=== PATIENT | female | born 1990 | race Caucasian/White ===

== ENCOUNTER 2016-09-27 19:13 | Emergency (ER) | payer SELFPAY ==
[~2016-09-27] VITALS: Ht 160 cm; Wt 51.0 kg
[2016-09-27 19:28] VITALS: BP 129/92; PULSE 114; RESP 18; TEMP 98.3; O2SAT 96
== END 2016-09-27 20:28 | disposition left against medical advice (07) ==
LOC: PHED 19:13
DX: R68.89 Other general symptoms and signs (principal)
CPT/HCPCS: 99281

== ENCOUNTER 2016-09-29 10:35 | Emergency (ER) | payer SELFPAY ==
[~2016-09-29] VITALS: Ht 160 cm; Wt 55.0 kg
[2016-09-29 10:37] VITALS: BP 105/72; PULSE 76; RESP 17; TEMP 98.2; O2SAT 99
[2016-09-29 10:46] VITALS: BP 112/71; PULSE 63; RESP 18; TEMP 98.7; O2SAT 97
[2016-09-29] MEDS ORDERED: SODIUM CHLORIDE 0.9% FLUSH 10 ML FLUSH IV FLUSH PRN (11:00)
[2016-09-29 11:01] VITALS: O2SAT 96
[2016-09-29 11:28] LABS: AUTOMATED NEUTROPHIL # 6.7 TH/MM3 (1.8-7.7); BASOPHIL % 0.3 % (0.0-2.0); EOSINOPHIL # 0.4 TH/MM3 (0-0.4); EOSINOPHIL % 3.4 % (0.0-4.0); HEMATOCRIT 46.1 % (35.0-46.0); HEMO FLAGS DIFF FINAL; LYMPH % 31.3 % (9.0-44.0); LYMPHOCYTE # 3.5 TH/MM3 (1.0-4.8); MEAN CELL VOLUME 82.6 FL (80.0-100.0); MEAN CORPUSCULAR HEMOGLOBIN 27.5 PG (27.0-34.0); MEAN CORPUSCULAR HGB CONC 33.3 % (32.0-36.0); MONO % 5.3 % (0.0-8.0); NEUT % 59.7 % (16.0-70.0); PLATELET COUNT 291 TH/MM3 (150-450); RED BLOOD COUNT 5.58 MIL/MM3 (4.00-5.30); WHITE BLOOD COUNT 11.2 TH/MM3 (4.0-11.0)
[2016-09-29 11:55] LABS: ALT (GPT) 43 U/L (10-53); ANION GAP 9 MEQ/L (5-15); AST (GOT) 17 U/L (15-37); BICARBONATE 25.7 MEQ/L (21.0-32.0); BLOOD UREA NITROGEN 12 MG/DL (7-18); CHLORIDE 103 MEQ/L (98-107); GLOMERULAR FILTRATION RATE 91 ML/MIN (>89); POTASSIUM 4.5 MEQ/L (3.5-5.1); SODIUM (NA) 138 MEQ/L (136-145)
[2016-09-29 11:57] LABS: ALKALINE PHOSPHATASE 57 U/L (45-117); TOTAL BILIRUBIN ADULT 0.3 MG/DL (0.2-1.0)
--- NOTE | 2016-09-29 12:00 | PD ---
HPI Chief Complaint: General Weakness Time Seen by Provider: 10:55 Travel History International Travel<30 days: No Contact w/Intl Traveler<30days: No Traveled to known affect area: No History of Present Illness HPI Patient is a 26-year-old female with history of IVDU who presents emergency department with complaint of generalized weakness, nausea vomiting diarrhea. Patient has a history of heroin abuse. States she last used approximately 9 days ago. She's been feeling poorly in the interim with withdrawal symptoms of nausea vomiting and diarrhea. Patient states that this is typical for her withdrawal but it seems to be lasting longer. She typically only withdraws for 3-5 days historically. She has not had any fevers, chills. She does feel generally weak and is concerned she may have an infection somewhere because of her history of IV drug abuse. She most recently injected in the hands and has not had any associated erythema or swelling. PFSH Past Medical History Asthma: Yes Anxiety: Yes Depression: Yes Heart Rhythm Problems: Yes (arrythmia ) Cardiovascular Problems: No (irregular rhythm) Insomnia: Yes Respiratory: Yes (asthma) Influenza Vaccination: No ?: Not LMP: last period in 2014 Past Surgical History Surgical History: No Previous Surgery Social History Alcohol Use: Yes (occassionally ) Tobacco Use: Yes (couple cigarettes a day) Substance Use: Yes (herroine, last time 09/21/2016) Allergies-Medications (Allergen,Severity, Reaction): Coded Allergies: Amoxicillin (Verified Allergy, Severe, throat closes, 09/29/16) Penicillin (Verified Allergy, Severe, 09/27/16) Reported Meds & Prescriptions Reported Meds & Active Scripts Active No Active Prescriptions or Reported Medications Review of Systems Except as stated in HPI: all other systems reviewed are Neg Physical Exam Narrative GENERAL: Well-appearing female in no acute distress SKIN: Focused skin assessment warm/dry. Tract minor in the bilateral arms without any erythema HEAD: Normocephalic. EYES: No scleral icterus. No injection or drainage. ENT: Mucous membranes pink and moist. NECK: Supple CARDIOVASCULAR: Regular rate and rhythm. No murmur appreciated. RESPIRATORY: No accessory muscle use. Clear to auscultation. Breath sounds equal bilaterally. GASTROINTESTINAL: Abdomen soft, non-tender, nondistended. MUSCULOSKELETAL: No obvious deformities. No edema. NEUROLOGICAL: Awake and alert. Motor grossly within normal limits. Normal speech. PSYCHIATRIC: Appropriate mood and affect; insight and judgment normal. Data Data Last Documented VS Vital Signs Date Time Temp Pulse Resp B/P Pulse Ox O2 Delivery O2 Flow Rate FiO2 09/29/16 11:01 96 Room Air 09/29/16 10:46 98.7 63 18 Orders Complete Blood Count With Diff (09/29/16 10:58) Comprehensive Metabolic Panel (09/29/16 10:58) Lipase (09/29/16 10:58) Iv Access Insert/Monitor (09/29/16 10:58) Oximetry (09/29/16 10:58) Sodium Chloride 0.9% Flush (Ns Flush) (09/29/16 11:00) Blood Culture (09/29/16 10:58) Labs Laboratory Tests Test 09/29/16 09/29/16 11:08 11:10 Sodium Level 138 MEQ/L Potassium Level 4.5 MEQ/L Chloride Level 103 MEQ/L Carbon Dioxide Level 25.7 MEQ/L Anion Gap 9 MEQ/L Blood Urea Nitrogen 12 MG/DL Creatinine 0.76 MG/DL Estimat Glomerular Filtration 91 ML/MIN Rate Random Glucose 105 MG/DL Calcium Level 9.1 MG/DL Total Bilirubin 0.3 MG/DL Aspartate Amino Transf 17 U/L (AST/SGOT) Alanine Aminotransferase 43 U/L (ALT/SGPT) Alkaline Phosphatase 57 U/L Total Protein 7.6 GM/DL Albumin 3.8 GM/DL Lipase 302 U/L White Blood Count 11.2 TH/MM3 Red Blood Count 5.58 MIL/MM3 Hemoglobin 15.4 GM/DL Hematocrit 46.1 % Mean Corpuscular Volume 82.6 FL Mean Corpuscular Hemoglobin 27.5 PG Mean Corpuscular Hemoglobin 33.3 % Concent Red Cell Distribution Width 16.0 % Platelet Count 291 TH/MM3 Mean Platelet Volume 8.8 FL Neutrophils (%) (Auto) 59.7 % Lymphocytes (%) (Auto) 31.3 % Monocytes (%) (Auto) 5.3 % Eosinophils (%) (Auto) 3.4 % Basophils (%) (Auto) 0.3 % Neutrophils # (Auto) 6.7 TH/MM3 Lymphocytes # (Auto) 3.5 TH/MM3 Monocytes # (Auto) 0.6 TH/MM3 Eosinophils # (Auto) 0.4 TH/MM3 Basophils # (Auto) 0.0 TH/MM3 CBC Comment DIFF FINAL Differential Comment MDM Medical Decision Making Medical Screen Exam Complete: Yes Emergency Medical Condition: Yes Medical Record Reviewed: Yes Differential Diagnosis 26-year-old female with history of IVDU here with complaint of 10 days of generalized weakness, nausea vomiting and diarrhea since stopping injecting heroin. Differential includes opioid withdrawal, gastroenteritis, dehydration, electrolyte abnormality. Less likely peritoneal pathology. No murmur, fever, tachycardia to suggest bacteremia or other widespread infection. Narrative Course Patient placed on monitor, IV established and blood obtained. Blood cultures were sent. CBC, CMP, lipase were obtained and unremarkable. Patient reassured. Symptoms looks likely due to persistent opioid withdrawal. She was encouraged to drink plenty of fluids. Encouraged to follow up with [facility] So that her sobriety can be long-term. Diagnosis Primary Impression: Opioid withdrawal Referrals: [facility] as needed Additional Instructions: Laboratory workup today was normal. Again blood cultures were sent and these take several days to result. Med/Other Pt SpecificInfo: No Change to Meds Scripts No Active Prescriptions or Reported Meds Disposition: 01 DISCHARGE HOME Condition: Stable Tiki Bishop MD September 29, 2016 12:00
== END 2016-09-29 12:25 | disposition home or self-care (01) ==
LOC: NEPD 10:35
DX: F11.23 Opioid dependence with withdrawal (principal); F17.210 Nicotine dependence, cigarettes, uncomplicated
CPT/HCPCS: 80053; 83690; 85025; 87040; 99283

== ENCOUNTER 2017-02-25 17:09 | Emergency (ER) | payer SELFPAY ==
[~2017-02-25] VITALS: Ht 165.1 cm; Wt 69.0 kg
[2017-02-25 17:17] VITALS: BP 134/82; PULSE 100; RESP 18; O2SAT 97
[2017-02-25] MEDS ORDERED: SODIUM CHLORIDE 0.9% FLUSH 10 ML FLUSH IVF PRN ×2 (17:30)
[2017-02-25] MEDS ORDERED: NALOXONE HCL 2 MG/2 ML VIAL IM ONE ×2 (17:30)
[2017-02-25 17:46] VITALS: BP 120/78; PULSE 75; RESP 12; O2SAT 97
[2017-02-25 18:06] LABS: BILIRUBIN, URINE NEG (NEG); BLOOD, URINE NEG (NEG); GLUCOSE,URINE NEG (NEG); HYALINE CAST, URINE 1 /lpf (RARE); KETONE, URINE NEG (NEG); MUCUS URINE FEW /lpf (OCC); NITRITE,URINE NEG (NEG); SQUAMOUS EPITHELIAL CELL URINE 1 /hpf (0-5); URINE COLOR LIGHT-YELLOW (YELLW/STRAW); URINE LEUKOCYTE ESTERASE NEG (NEG)
[2017-02-25 18:16] LABS: AUTOMATED NEUTROPHIL # 7.6 TH/MM3 (1.8-7.7); BASOPHIL % 0.4 % (0.0-2.0); EOSINOPHIL # 0.1 TH/MM3 (0-0.4); EOSINOPHIL % 0.9 % (0.0-4.0); HEMATOCRIT 42.5 % (35.0-46.0); LYMPH % 27.8 % (9.0-44.0); LYMPHOCYTE # 3.2 TH/MM3 (1.0-4.8); MEAN CELL VOLUME 90.8 FL (80.0-100.0); MEAN CORPUSCULAR HEMOGLOBIN 29.9 PG (27.0-34.0); MEAN CORPUSCULAR HGB CONC 32.9 % (32.0-36.0); MEAN PLATELET VOLUME 8.5 FL (7.0-11.0); MONO % 5.7 % (0.0-8.0); MONOCYTE # 0.7 TH/MM3 (0-0.9); NEUT % 65.2 % (16.0-70.0); PLATELET COUNT 370 TH/MM3 (150-450); RED BLOOD COUNT 4.68 MIL/MM3 (4.00-5.30); RED CELL DISTRIBUTION WIDTH 15.1 % (11.6-17.2); WHITE BLOOD COUNT 11.6 TH/MM3 (4.0-11.0)
[2017-02-25 18:21] LABS: BICARBONATE 17.4 MEQ/L (21.0-32.0); CALCIUM 8.1 MG/DL (8.5-10.1); CREATININE 0.76 MG/DL (0.50-1.00)
[2017-02-25 18:40] VITALS: BP 125/78; PULSE 83; RESP 16; O2SAT 98
--- NOTE | 2017-02-25 18:42 | PD ---
HPI Chief Complaint: OD/ Ingestion Time Seen by Provider: 17:26 Travel History International Travel<30 days: No Contact w/Intl Traveler<30days: No Traveled to known affect area: No History of Present Illness HPI This is a 26-year-old female with a history of opioid drug abuse, presents via EMS as she was found unresponsive. When paramedics found her, she was with decreased level of consciousness and had decreased respiratory rate. They administered 0.4 mg of Narcan and she seemed to wake up. The patient reports using what she thought was heroin. She denies any other ingestion other than alcohol. [facility] Past Medical History Asthma: Yes Anxiety: Yes Depression: Yes Heart Rhythm Problems: Yes (arrythmia ) Cardiovascular Problems: No (irregular rhythm) Insomnia: Yes Respiratory: Yes (asthma) ?: Unknown Social History Alcohol Use: Yes Tobacco Use: Yes Substance Use: Yes (IVDA) Allergies-Medications (Allergen,Severity, Reaction): Coded Allergies: amoxicillin (Unverified Allergy, Severe, throat closes, 12/15/16) penicillin G (Unverified Allergy, Severe, 12/15/16) Reported Meds & Prescriptions Reported Meds & Active Scripts Active No Active Prescriptions or Reported Medications Review of Systems ROS Limitations: Intoxication Except as stated in HPI: all other systems reviewed are Neg (review of systems Limited secondary to patient's intoxicated state.) Physical Exam Narrative GENERAL: Well developed well-nourished female who is lethargic however arousable and able to answer questions. SKIN: Focused skin assessment warm/dry. He does appear to have track minor in her bilateral antecubital areas. Patient also has several healed areas where she was self cutting. HEAD: Atraumatic. Normocephalic. EYES: Pupils equal and round. No scleral icterus. No injection or drainage. ENT: No nasal bleeding or discharge. Mucous membranes pink and moist. NECK: Trachea midline. Supple. CARDIOVASCULAR: Sinus tach with a rate of 103. No obvious murmurs appreciated. RESPIRATORY: No accessory muscle use. Clear to auscultation. Breath sounds equal bilaterally. Hepatic and splenic margins not palpable. MUSCULOSKELETAL: No obvious deformities. No clubbing. No cyanosis. No edema. Track minor as above. NEUROLOGICAL: Awake and somewhat larger. No obvious cranial nerve deficits. Motor grossly within normal limits. Slight slurred speech. PSYCHIATRIC: Appropriate mood and affect; insight and judgment normal. Data Data Last Documented VS Vital Signs Date Time Temp Pulse Resp B/P (MAP) Pulse Ox O2 Delivery O2 Flow Rate FiO2 02/25/17 18:40 83 16 125/78 (94) 98 Room Air 02/25/17 17:22 2.00 Orders Orders Electrocardiogram (02/25/17:26) Basic Metabolic Panel (Bmp) (02/25/17 17:26) Complete Blood Count With Diff (02/25/17:) Urinalysis - C+S If Indicated (02/25/17:) Iv Access Insert/Monitor (02/25/17:) Ecg Monitoring (02/25/17:) Oximetry (02/25/17:) Naloxone Inj (Narcan Inj) (02/25/17 17:30) Sodium Chloride 0.9% Flush (Ns Flush) (02/25/17 17:30) Drug Screen, Random Urine (02/25/17:26) Alcohol (Ethanol) (02/25/17:26) Cath For Specimen (02/25/17:26) Ed Urine Pregnancytest Poc (02/25/17 17:26) Labs Laboratory Tests Test 02/25/17 17:45 White Blood Count 11.6 TH/MM3 Red Blood Count 4.68 MIL/MM3 Hemoglobin 14.0 GM/DL Hematocrit 42.5 % Mean Corpuscular Volume 90.8 FL Mean Corpuscular Hemoglobin 29.9 PG Mean Corpuscular Hemoglobin Concent 32.9 % Red Cell Distribution Width 15.1 % Platelet Count 370 TH/MM3 Mean Platelet Volume 8.5 FL Neutrophils (%) (Auto) 65.2 % Lymphocytes (%) (Auto) 27.8 % Monocytes (%) (Auto) 5.7 % Eosinophils (%) (Auto) 0.9 % Basophils (%) (Auto) 0.4 % Neutrophils # (Auto) 7.6 TH/MM3 Lymphocytes # (Auto) 3.2 TH/MM3 Monocytes # (Auto) 0.7 TH/MM3 Eosinophils # (Auto) 0.1 TH/MM3 Basophils # (Auto) 0.0 TH/MM3 CBC Comment DIFF FINAL Differential Comment Urine Color LIGHT-YELLOW Urine Turbidity CLEAR Urine pH 6.0 Urine Specific [place] 1.007 Urine Protein TRACE mg/dL Urine Glucose (UA) NEG mg/dL Urine Ketones NEG mg/dL Urine Occult Blood NEG Urine Nitrite NEG Urine Bilirubin NEG Urine Urobilinogen LESS THAN 2.0 MG/DL Urine Leukocyte Esterase NEG Urine WBC 1 /hpf Urine Squamous Epithelial Cells 1 /hpf Urine Hyaline Casts 1 /lpf Urine Mucus FEW /lpf Microscopic Urinalysis Comment CULT NOT INDICATED Blood Urea Nitrogen 6 MG/DL Creatinine 0.76 MG/DL Random Glucose 123 MG/DL Calcium Level 8.1 MG/DL Sodium Level 142 MEQ/L Potassium Level 3.5 MEQ/L Chloride Level 112 MEQ/L Carbon Dioxide Level 17.4 MEQ/L Anion Gap 13 MEQ/L Estimat Glomerular Filtration Rate 91 ML/MIN Urine Opiates Screen POS Urine Barbiturates Screen NEG Urine Amphetamines Screen NEG Urine Benzodiazepines Screen NEG Urine Cocaine Screen NEG Urine Cannabinoids Screen NEG Ethyl Alcohol Level 138 MG/DL MDM Medical Decision Making Medical Screen Exam Complete: Yes Emergency Medical Condition: Yes Differential Diagnosis Opiate overdose versus alcohol intoxication versus metabolic derangement. Narrative Course 26-year-old female presents via EMS after she was found with minimal responsiveness. The patient admits to using opiates. She was given Narcan in the field. She's been given 4 mg of IM Narcan here. Her alcohol level is also 137. Tox is positive for opiates. She'll be observed 4 hours. If she is appropriately awake at 4 hour christina, she can be safely discharged. I will sign the patient out to Dr. Linda Bonilla who will assume care. Diagnosis Primary Impression: Opiate overdose Additional Impression: Alcohol intoxication Additional Instructions: Stop using drugs and drinking alcohol. Scripts No Active Prescriptions or Reported Meds Disposition: 01 DISCHARGE HOME Condition: Stable Tan Almanzar MD Feb 25, 2017 18:42
--- NOTE | 2017-02-25 21:35 | PD ---
Data Data Last Documented VS Vital Signs Date Time Temp Pulse Resp B/P (MAP) Pulse Ox O2 Delivery O2 Flow Rate FiO2 02/25/17 18:40 83 16 125/78 (94) 98 Room Air 02/25/17 17:22 2.00 Orders Orders Electrocardiogram (02/25/17 17:26) Basic Metabolic Panel (Bmp) (02/25/17 17:26) Complete Blood Count With Diff (02/25/17:26) Urinalysis - C+S If Indicated (02/25/17:) Iv Access Insert/Monitor (02/25/17 17:26) Ecg Monitoring (02/25/17:) Oximetry (02/25/17:) Naloxone Inj (Narcan Inj) (02/25/17 17:30) Sodium Chloride 0.9% Flush (Ns Flush) (02/25/17 17:30) Drug Screen, Random Urine (02/25/17:26) Alcohol (Ethanol) (02/25/17:26) Cath For Specimen (02/25/17:) Ed Urine Pregnancytest Poc (02/25/17 17:26) Labs Laboratory Tests Test 02/25/17 17:45 White Blood Count 11.6 TH/MM3 Red Blood Count 4.68 MIL/MM3 Hemoglobin 14.0 GM/DL Hematocrit 42.5 % Mean Corpuscular Volume 90.8 FL Mean Corpuscular Hemoglobin 29.9 PG Mean Corpuscular Hemoglobin Concent 32.9 % Red Cell Distribution Width 15.1 % Platelet Count 370 TH/MM3 Mean Platelet Volume 8.5 FL Neutrophils (%) (Auto) 65.2 % Lymphocytes (%) (Auto) 27.8 % Monocytes (%) (Auto) 5.7 % Eosinophils (%) (Auto) 0.9 % Basophils (%) (Auto) 0.4 % Neutrophils # (Auto) 7.6 TH/MM3 Lymphocytes # (Auto) 3.2 TH/MM3 Monocytes # (Auto) 0.7 TH/MM3 Eosinophils # (Auto) 0.1 TH/MM3 Basophils # (Auto) 0.0 TH/MM3 CBC Comment DIFF FINAL Differential Comment Urine Color LIGHT-YELLOW Urine Turbidity CLEAR Urine pH 6.0 Urine Specific [place] 1.007 Urine Protein TRACE mg/dL Urine Glucose (UA) NEG mg/dL Urine Ketones NEG mg/dL Urine Occult Blood NEG Urine Nitrite NEG Urine Bilirubin NEG Urine Urobilinogen LESS THAN 2.0 MG/DL Urine Leukocyte Esterase NEG Urine WBC 1 /hpf Urine Squamous Epithelial Cells 1 /hpf Urine Hyaline Casts 1 /lpf Urine Mucus FEW /lpf Microscopic Urinalysis Comment CULT NOT INDICATED Blood Urea Nitrogen 6 MG/DL Creatinine 0.76 MG/DL Random Glucose 123 MG/DL Calcium Level 8.1 MG/DL Sodium Level 142 MEQ/L Potassium Level 3.5 MEQ/L Chloride Level 112 MEQ/L Carbon Dioxide Level 17.4 MEQ/L Anion Gap 13 MEQ/L Estimat Glomerular Filtration Rate 91 ML/MIN Urine Opiates Screen POS Urine Barbiturates Screen NEG Urine Amphetamines Screen NEG Urine Benzodiazepines Screen NEG Urine Cocaine Screen NEG Urine Cannabinoids Screen NEG Ethyl Alcohol Level 138 MG/DL MDM Supervised Visit with ADLEA: No Narrative Course This is a patient I took over for Dr. Almanzar. She presents to the emergency department following an recreational opiate overdose. She is also intoxicated with alcohol. She was observed in the emergency department and did not require any supplemental oxygen or further intervention. Patient will be discharged home. Diagnosis Primary Impression: Opiate overdose Additional Impression: Alcohol intoxication Patient Instructions: General Instructions Additional Instruction: Stop using drugs and drinking alcohol. Med/Other Pt SpecificInfo: No Change to Meds Scripts No Active Prescriptions or Reported Meds Disposition: 01 DISCHARGE HOME Condition: Stable Linda Pan MD Feb 25, 2017 21:35
[2017-02-25 21:50] VITALS: PULSE 86; RESP 16; O2SAT 98
--- NOTE | 2017-02-25 23:06 | EKG ---
Date Performed: 02/25/2017 Time Performed: 17:53:44 PTAGE: 26 years EKG: SINUS TACHYCARDIA ABNORMAL RHYTHM ECG NO PREVIOUS TRACING DOCTOR: Ishmael Esquivel Interpretating Date/Time 02/25/2017 23:04:07
== END 2017-02-25 21:53 | disposition home or self-care (01) ==
LOC: NEPE 17:09
DX: T40.601A Poisoning by unspecified narcotics, accidental (unintentional), initial encounter (principal); F10.129 Alcohol abuse with intoxication, unspecified; R00.0 Tachycardia, unspecified; J45.909 Unspecified asthma, uncomplicated; Y90.6 Blood alcohol level of 120-199 mg/100 ml; Z72.0 Tobacco use
CPT/HCPCS: 80048; 80307; 81001; 84703; 85025; 93005; 96372; 99284; J2310; P9612